=== PATIENT | female | born 1990 | race Caucasian/White ===

== ENCOUNTER → 2024-01-29 14:44 | Outpatient (REF) | payer BC, SELFPAY | LOC: HWRAD 14:44 | PROVIDERS: ATTENDING PHYSICIAN Internal Medicine; FAMILY PHYSICIAN Family Medicine | DX: D17.0 Benign lipomatous neoplasm of skin and subcutaneous tissue of head, face and neck (principal) | CPT/HCPCS: 76536 ==

== ENCOUNTER → 2024-02-13 14:17 | Outpatient (REF) | payer BC, SELFPAY | LOC: RAD 14:17 | PROVIDERS: ATTENDING PHYSICIAN Internal Medicine; FAMILY PHYSICIAN Family Medicine | DX: D48.5 Neoplasm of uncertain behavior of skin (principal) | CPT/HCPCS: 70470; Q9967 ==

== ENCOUNTER 2024-03-27 12:23 | Emergency (ER) | payer SELFPAY ==
[2024-03-27 12:25] VITALS: BP 148/89
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
[2024-03-27 14:52] LABS: HCG, Urine Qualitative Screen Negative
== END 2024-03-27 17:11 | disposition home or self-care (01) ==
LOC: EMR 12:23
PROVIDERS: Physician Assistant; EMERGENCY PHYSICIAN Emergency Medicine; FAMILY PHYSICIAN Family Medicine
DX: R51.9 Headache, unspecified (principal); M79.642 Pain in left hand; M79.641 Pain in right hand; V89.2XXA Person injured in unspecified motor-vehicle accident, traffic, initial encounter; Y92.410 Unspecified street and highway as the place of occurrence of the external cause; J45.909 Unspecified asthma, uncomplicated; F98.8 Other specified behavioral and emotional disorders with onset usually occurring in childhood and adolescence; F41.9 Anxiety disorder, unspecified
CPT/HCPCS: 99284; 70450; 73110; 73130; 81025

== ENCOUNTER 2024-03-29 16:36 | Emergency (ER) | payer SELFPAY ==
[2024-03-29 16:45] VITALS: BP 117/86
[2024-03-29] MEDS: KEFLEX 500 MG PO ×2 (19:56→20:29)
[2024-03-29 20:30] VITALS: BP 124/82
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
== END 2024-03-29 21:56 | disposition home or self-care (01) ==
LOC: EMR 16:36
PROVIDERS: EMERGENCY PHYSICIAN Emergency Medicine; FAMILY PHYSICIAN Family Medicine
DX: T23.211A Burn of second degree of right thumb (nail), initial encounter (principal); V49.9XXA Car occupant (driver) (passenger) injured in unspecified traffic accident, initial encounter; J45.909 Unspecified asthma, uncomplicated; F90.9 Attention-deficit hyperactivity disorder, unspecified type; F41.9 Anxiety disorder, unspecified
CPT/HCPCS: 99283

== ENCOUNTER → 2024-05-14 17:52 | Outpatient (REF) | payer BC, SELFPAY | LOC: MRI 3T 17:52 | PROVIDERS: ATTENDING PHYSICIAN Internal Medicine; FAMILY PHYSICIAN Family Medicine | DX: D48.5 Neoplasm of uncertain behavior of skin (principal) | CPT/HCPCS: 70553; A9575 ==

== ENCOUNTER → 2024-10-17 14:48 | Outpatient (REF) | payer OTHER, SELFPAY | LOC: RAD 14:48 | PROVIDERS: ATTENDING PHYSICIAN Nurse Practitioner Adult Health; FAMILY PHYSICIAN Family Medicine | DX: R10.2 Pelvic and perineal pain (principal) | CPT/HCPCS: 76830; 76856 ==